=== PATIENT | male | born 1945 | race Caucasian/White ===

== ENCOUNTER 2023-12-28 10:36 | Emergency (ER) | payer MEDICARE, MEDICAID ==
[2023-12-28] MEDS: Oxymetazoline 0.05% Nasal Spray 30 ML Bottle NAS ONE (10:51)
== END 2023-12-28 11:31 | disposition home or self-care (01) ==
LOC: VM.ED 10:36
DX: R04.0 Epistaxis (principal); Z79.01 Long term (current) use of anticoagulants; Z88.8 Allergy status to other drugs, medicaments and biological substances
CPT/HCPCS: 30901; 99283; A9270-GY